=== PATIENT | female | born 1980 | race Caucasian/White ===

== ENCOUNTER 2017-04-11 17:49 | Emergency (ER) | payer OTHER ==
[~2017-04-11] VITALS: Ht 167.6 cm; Wt 113.4 kg
--- NOTE | 2017-04-11 18:26 | ED GENERAL ADULT ---
History of Present Illness General Chief Complaint: General Adult Stated Complaint: PT PAIN IN THE NECK AND BACK Source: patient Exam Limitations: no limitations Vital Signs & Intake/Output Vital Signs & Intake/Output Vital Signs Date Time Temp Pulse Resp B/P B/P Pulse O2 O2 Flow FiO2 Mean Ox Delivery Rate 04/11 2021 98.1 82 18 112/74 97 Room Air Room Air ED Intake and Output 04/12 0000 04/11 1200 Intake Total Output Total Balance Patient 250 lb Weight Allergies Coded Allergies: NO KNOWN ALLERGIES (08/11/12) Triage Note: PT HAS BEEN HAVING STOMACH AND BACK PAIN SINCE LAST NIGHT. PT STATES SHE IS BREAST FEEDING SO SHE IS NOT SURE IF IT HAS ANYTHING TO DO WITH THAT. Triage Nurses Notes Reviewed? yes Onset: Gradual Duration: day(s): (2) Timing: no prior history Injury Environment: home Severity: moderate Severity Numbers: 6 No Modifying Factors: none : No Patient currently breastfeeds: Yes HPI: pt is a 36-year-old female currently breast-feeding presenting to the emergency department with chief complaint of bilateral back pain that radiates around both flanks. Positive nausea, she made herself vomit last night. Also reports several episodes of diarrhea last night. Tactile fevers. No chills. Denies sick contacts or recent travel. Denies taking anything to help with symptoms. no urinary symptoms. (FEI RAMOS) Past History Travel History Traveled to [place] past 21 day No Medical History Any Pertinent Medical History? see below for history Surgical History Surgical History: non-contributory Psychosocial History What is your primary language [place] Tobacco Use: Never used ETOH Use: denies use Illicit Drug Use: denies illicit drug use Family History Hx Contributory? No (FEI RAMOS) Review of Systems Review of Systems Constitutional: Reports: malaise. Comments Review of systems: See HPI, All other systems negative. Constitutional, no chills fever or weight loss HEENT: No visual changes no sore throat no congestion Cardiovascular: No chest pain ,palpitation , orthopnea or ankle swelling Skin, no jaundice no rashes Respiratory: No dyspnea cough sputum or hemoptysis GI: Positive nausea, vomiting and diarrhea : No dysuria No hematuria Muscle skeletal: no back pain, no neck pain, Neurologic: No numbness no confusion Psych: No stress anxiety Immunology: No splenectomy or history of AIDS (FEI RAMOS) Physical Exam Physical Exam General Appearance: well developed/nourished, no apparent distress, alert, awake , comfortable Comments: Well-developed well-nourished person in no acute distress HEENT: Normal EENT exam, extraocular motion intact, no nystagmus. Pupils equally round and reactive to light and accommodation. Nose is atraumatic. Pharynx normal. No swelling or edema. Neck: Normal inspection Back: Tenderness to palpation over the thoracic paraspinal muscles to palpation, no CVA tenderness. Full range of motion Cardiovascular: Regular rate and rhythms no murmurs rubs or gallops, normal JVP Respiratory: Chest nontender. No respiratory distress.breath sounds clear to auscultation bilaterally Abdomen: Soft, mildly tender to palpation in the epigastric region, nondistended , no appreciable organomegaly. Normal bowel sounds. No ascites. No rebound or guarding. Extremity: No edema Neuro: Alert oriented x3 Skin: No appreciable rash on exposed skin, skin is warm and dry. Psych: Mood and affect is normal, memory and judgment is normal. Core Measures ACS in differential dx? No CVA/TIA Diagnosis: No Severe Sepsis Present: No Septic Shock Present: No (FEI RAMOS) Progress Differential Diagnoses I considered the following diagnoses in my evaluation of the patient: Gastroenteritis, gastritis, viral syndrome, dehydration, colitis, diverticulitis , electrolyte abnormality Plan of Care: Orders Procedure Date/time Status Add-on Test (ER Only) 04/11 2015 Active CULTURE,URINE 04/11 1936 Active Laboratory Tests 04/11/171935: Urine Color YEL, Urine Clarity CLDY H, Urine pH 6.0, Ur Specific Latty 1.015, Urine Protein NEG, Urine Ketones NEG, Urine Nitrite NEG, Urine Bilirubin NEG, Urine Urobilinogen 0.2, Ur Leukocyte Esterase SMALL H, Ur Microscopic SEDIMENT EXAMINED, Urine RBC 1-3, Urine WBC 10-15 H, Ur Epithelial Cells MANY H, Urine Bacteria MANY H, Urine Mucus MOD H, Urine Hemoglobin NEG, Urine Glucose NEG Microbiology 04/11 1936 URINE ROUT: Urine Culture - RES Initial ED EKG: none Comments: Likely viral in nature. Blood work is within normal range. She will increase fluids. She can take [id number] Zantac or Pepto-Bismol to help with gastritis symptoms. She'll return for any worsening symptoms or concerns. No elevation in white blood cell count. No right lower quadrant pain to palpation. No indication for CT scan at this time. (FEI RAMOS) Departure Departure Time of Disposition: 2015 Disposition: HOME OR SELF CARE Condition: Stable Clinical Impression Primary Impression: Diarrhea Secondary Impressions: Abdominal pain Qualifiers: Abdominal location: epigastric Qualified Code: R10.13 - Epigastric pain Nausea & vomiting Qualifiers: Vomiting type: unspecified Vomiting Intractability: unspecified Qualified Code: R11.2 - Nausea with vomiting, unspecified Referrals: UNKNOWN (PCP/Family) Additional Instructions: Follow-up with your primary care physician call to make an appointment. Increase fluids. Take Zofran as prescribed for nausea. Departure Forms: Customer Survey General Discharge Information (FEI RAMOS) PA/SHERIFF DETECTIVE Co-Sign Statement Statement: ED Attending supervision documentation- I saw and evaluated the patient. I have also reviewed all the pertinent lab results and diagnostic results. I agree with the findings and the plan of care as documented in the PA's/SHERIFF DETECTIVE's documentation. X I have reviewed the ED Record and agree with the PA's/SHERIFF DETECTIVE's documentation. [] Additions or exceptions (if any) to the PAs/SHERIFF DETECTIVE's note and plan are summarized below: [] (WENDY ANDERS,MAYDA) Critical Care Note Critical Care Note Critical Care Time: non-applicable (FEI RAMOS)
[2017-04-11 18:53] LABS: ABSOLUTE BASOPHIL COUNT 0 /CUMM (0.0-0.2); ABSOLUTE EOSINOPHIL COUNT 0.1 /CUMM (0.0-0.7); ABSOLUTE GRANULOCYTE CT 3.8 /CUMM (1.4-6.5); ABSOLUTE LYMPH COUNT 0.6 /CUMM (1.2-3.4); ABSOLUTE MONOCYTE COUNT 0.3 /CUMM (0.10-0.60); BASOPHIL % 0.2 % (0.0-2.0); EOSINOPHIL % 1.4 % (0-5); GRANULOCYTE % 79.2 % (42.2-75.2); HEMATOCRIT 39.7 % (37-47); MEAN CORPUSCULAR HGB 27.9 PG (27.0-31.0); MEAN CORPUSCULAR HGB CONC 33.5 G/DL (33.0-37.0); MEAN CORPUSCULAR VOLUME 83.4 FL (81.0-99.0); MEAN PLATELET VOLUME 7.8 FL (7.4-10.4); PLATELET COUNT 189 /CUMM (130-400); RBC DISTRIBUTION WIDTH 12.8 % (11.5-14.5); RED BLOOD CELL CT 4.76 /CUMM (4.20-5.40); WHITE BLOOD CELL COUNT 4.9 /CUMM (4.8-10.8)
[2017-04-11 20:21] VITALS: BP 112/74
== END 2017-04-11 20:38 ==
LOC: ERH 17:49
PROVIDERS: Physician Assistant
DX: R19.7 Diarrhea, unspecified (principal); R11.2 Nausea with vomiting, unspecified; R10.32 Left lower quadrant pain; R10.31 Right lower quadrant pain
CPT/HCPCS: 81001; 87071; 87086; 96374; 96375; J1885; J2405